=== PATIENT | female | born 2000 | race African-American/Black ===

== ENCOUNTER 2023-10-14 10:04 | Emergency (ER) | payer OTHER ==
[2023-10-14 10:41] LABS: BILIRUBIN,URINE NEGATIVE (NEGATIVE); GLUCOSE, URINE (UA) NEGATIVE (NEGATIVE); KETONES,URINE (UA) TRACE mg/dL (NEGATIVE); NITRITE,URINE NEGATIVE (NEGATIVE); OCCULT BLOOD,URINE NEGATIVE (NEGATIVE); PROTEIN,URINE NEGATIVE (NEGATIVE); UROBILINOGEN,URINE 1 (NORMAL) E.U./dL (NORMAL)
[2023-10-14 10:42] LABS: HCG UR QUAL NEGATIVE
[2023-10-14 11:02] LABS: CLARITY,URINE CLEAR (CLEAR); WBC CLUMPS,URINE PRESENT
[2023-10-14 11:03] LABS: BACTERIA,URINE Many /HPF (None Seen); LEUKOCYTE ESTERASE, URINE SMALL (NEGATIVE); RBC,URINE None Seen /HPF (0-5); SQUAMOUS EPITHELIAL CELL,UR MOD Squamous (<= Few)
--- NOTE | 2023-10-14 11:42 | ED Physician Documentation ---
PD HPI FEMALE - Stated complaint Stated Complaint: - Chief complaint Chief Complaint: UTI - History obtained from History obtained from: Patient - Additional information Additional information: Patient is a 23-year-old female presenting for evaluation of feeling urinary urgency and frequency with little coming out since yesterday afternoon. She denies dysuria or hematuria. She does report white vaginal discharge but no pelvic pain. Denies concerns for STIs. No fever. Does report some intermittent pain in the right flank. Ibuprofen does help with this. Review of Systems Constitutional: denies: Fever Cardiac: denies: Chest pain / pressure Respiratory: denies: Dyspnea GI: denies: Abdominal Pain : reports: Frequency, Discharge PD PAST MEDICAL HISTORY - Past Medical History Past Medical History: No - Past Surgical History Past Surgical History: No - Present Medications Home Medications: Ambulatory Orders Medication Instructions Recorded Confirmed cephALEXin [Keflex] 500 mg PO Q6H #28 cap 10/14/23 metroNIDAZOLE [Flagyl] 500 mg PO BID 7 Days #14 tablet 10/14/23 - Allergies Allergies/Adverse Reactions: Allergies Allergy/AdvReac Type Severity Reaction Status Date / Time No Known Drug Allergies Allergy Verified 10/14/23 10:23 - Social History Does the pt smoke?: No Smoking Status: Never smoker Does the pt drink ETOH?: No Does the pt have substance abuse?: No - Immunizations Immunizations are current?: Yes PD ED PE NORMAL - General General: Alert and oriented X 3, No acute distress, Well developed/nourished - HEENT HEENT: Atraumatic - Neck Neck: Supple, no meningeal sign - Cardiac Cardiac: RRR, No murmur - Respiratory Respiratory: No respiratory distress, Clear bilaterally - Abdomen Abdomen: Normal bowel sounds, Soft, Non tender, Non distended - Back Back: No: No CVA TTP - Derm Derm: Warm and dry - Neuro Neuro: Normal speech Results - Vitals Vitals: Vital Signs - 24 hr 10/14/23 10/14/23 10:19 12:01 Temperature 36.4 C L Heart Rate 86 84 Respiratory 15 16 Rate Blood Pressure 119/74 115/74 O2 Saturation 100 99 Oxygen O2 Source Room air - Labs Labs: Laboratory Tests 10/14/23 10/14/23 10/14/23 10:25 11:58 11:58 Urine Color YELLOW Urine Clarity CLEAR Urine pH 6.0 Ur Specific Fran[place]wing >=1.030 H Urine Protein NEGATIVE Urine Glucose (UA) NEGATIVE Urine Ketones TRACE Urine Occult Blood NEGATIVE Urine Nitrite NEGATIVE Urine Bilirubin NEGATIVE Urine Urobilinogen 1 (NORMAL) Ur Leukocyte Esterase SMALL H Urine RBC None Seen Urine WBC 6-10 H Urine WBC Clumps PRESENT Ur Squamous Epith Cells MOD Squamous H Urine Bacteria Many H Ur Microscopic Review INDICATED Urine Culture Comments NOT INDICATED Urine HCG, Qual NEGATIVE C. glabrata (PCR) NEGATIVE C. krusei (PCR) NEGATIVE Elisabeth species DNA NEGATIVE Chlam trachomat DNA PCR NEGATIVE N.gonorrhoeae DNA (PCR) NEGATIVE T. vaginalis (PCR) NEGATIVE TNP Bact Vaginosis (PCR) POSITIVE A PD Medical Decision Making - ED course Complexity details: reviewed results, re-evaluated patient, d/w patient ED course: Patient presenting for evaluation of urinary frequency and urgency for the past 2 days. Urine is suggestive of a UTI. Also reports having some vaginal discharge. No pelvic complaints so patient self swabbed. Abdominal exam is benign. Vital signs are stable patient is well-appearing and tolerating p.o. Patient counseled on treatment plan as well as concerning symptoms to return for. Vaginosis swab is positive for bacterial vaginosis so a prescription for Flagyl was sent. [id number] - Attempted to call patient to review swab findings positive for bacterial vaginosis. I sent a prescription to [facility] pharmacy for metronidazole. Phone call went to voicemail and voicemail box was full so unable to leave a message. I did try a second time to call and also was unable to leave a message. There are no other numbers listed for the patient. Departure - Departure Disposition: 01 Home, Self Care Clinical Impression: Urinary tract infection Condition: Stable Instructions: ED UTI Cystitis Female Prescriptions: cephALEXin [Keflex] 500 mg PO Q6H #28 cap Comments: Your bladder is emptying but your symptoms are likely related to a urine infection as demonstrated by your urine test. I am starting you on an antibiotic and [place] [facility] [place] Please make sure to complete the course of the antibiotics. We have also collected samples from the vaginal discharge you are having and we will notify you of any abnormal results. Return to the ER if you have worsening symptoms such as fever or increased pain. Discharge Date/Time: 10/14/23 12:02
[2023-10-14 12:06] VITALS: BP 115/74; O2SAT 99
[2023-10-14 14:17] LABS: CHLAMYDIA TRACHOMATIS DNA NEGATIVE (NEGATIVE); NEISSERIA GONORRHOEAE DNA NEGATIVE (NEGATIVE)
[2023-10-14 14:18] LABS: BACTERIAL VAGINOSIS DNA POSITIVE (NEGATIVE); CANDIDA GLABRATA DNA NEGATIVE (NEGATIVE); CANDIDA GROUP DNA NEGATIVE (NEGATIVE); CANDIDA KRUSEI DNA NEGATIVE (NEGATIVE); TRICHOMONAS VAGINALIS DNA NEGATIVE (NEGATIVE)
== END 2023-10-14 12:02 | disposition home or self-care (01) ==
LOC: ED 10:04
DX: N39.0 Urinary tract infection, site not specified (principal); N76.0 Acute vaginitis
CPT/HCPCS: 51798; 81001; 81003; 81025; 81514; 87086; 87491; 87591; 87661; 99283

== ENCOUNTER 2024-03-18 08:45 | Emergency (ER) | payer OTHER ==
--- NOTE | 2024-03-18 09:07 | ED Physician Documentation ---
PD HPI LOWER EXT INJURY - Stated complaint Stated Complaint: LT FOOT PX - Chief complaint Chief Complaint: Ext Problem - History obtained from History obtained from: Patient - History of Present Illness PD HPI LOW EXT INJURY LOCATION: Left, Foot Type of injury: Twist Timing - onset: How many days ago (10) Timing - duration: Days (10) Timing - details: Abrupt onset (injury with twisting of foot and ankle 10 days ago with xray at [facility] and given crutches for 3-4 days, then told to be walking on it. Pt states hurts with walking and has not improved.) Improved by: Rest Worsened by: Moving, Palpating, Other (walking) Associated symptoms: Swelling. No: Weakness, Numbness Similar symptoms before: Has not had sx before Recently seen: Clinic Review of Systems Skin: denies: Abrasion (s), Laceration (s) Neurologic: denies: Focal weakness, Numbness PD PAST MEDICAL HISTORY - Past Medical History Past Medical History: No - Past Surgical History Past Surgical History: No - Present Medications Home Medications: Ambulatory Orders Medication Instructions Recorded Confirmed Meloxicam [Mobic] 7.5 mg PO BID 10 Days #20 tablet 03/18/24 - Allergies Allergies/Adverse Reactions: Allergies Allergy/AdvReac Type Severity Reaction Status Date / Time No Known Drug Allergies Allergy Verified 03/18/24 08:56 - Social History Does the pt smoke?: No Smoking Status: Never smoker Does the pt drink ETOH?: No Does the pt have substance abuse?: No - Immunizations Immunizations are current?: Yes PD ED PE NORMAL - Vitals Vital signs reviewed: Yes - General General: Alert and oriented X 3, No acute distress, Well developed/nourished - Derm Derm: Normal color, Warm and dry - Extremities Extremities: Other (left foot dorsolateral with swelling and tender locally. Not tender at malleoli. ) - Neuro Neuro: No motor deficit, No sensory deficit Results - Vitals Vitals: Oxygen O2 Source Room air - Rads (name of study) left foot Relevant Findings:: Prelim report reviewed, EMP independent interpretation of test (no fractures, subacute healing. ) PD Medical Decision Making - ED course Complexity details: reviewed results (foot xray without signs of fracture or healing (given initial injury 10 days ago, would be looking for the callous rather than fracture line itself). ), considered differential (foot sprain and still hurting at 10 days, which is not teribly long or unusual, given still walking on it after just few days of crutches. She states [facility] tolde her to be of crutches after just few days and no foot support, having to wear duty boots. ), d/w patient ED course: I feel more time of less use, with NAAIDs continued and back with the crutches use for partial to no weight bearing. xray done due to degree of pain and persistent swelling, to consider unseen fracture initially, would have some healing callous starting at this time. Normal xray. THerefore the most likely explanation is the simple one of a strain that is not headed yet because of persistent use. Departure - Departure Disposition: 01 Home, Self Care Clinical Impression: Sprain of foot, left Qualifiers: Encounter type: initial encounter Qualified Code(s): S93.602A - Unspecified sprain of left foot, initial encounter Condition: Stable Record reviewed to determine appropriate education?: Yes Instructions: ED Sprain Foot Follow-Up: ARLEY RASHEED MD [Primary Care Provider] - Prescriptions: Meloxicam [Mobic] 7.5 mg PO BID 10 Days #20 tablet Comments: Your x-ray still appears normal. Sometimes hairline fractures or subtle fractures cannot appear on initial films but typically would be at this point. We can therefore say it is the sprain is originally presumed. These can take several weeks or more to get better at times. I would have you resume thus crutches for partial to no weightbearing for another 3 to 5 days and then concurrently to have a firm soled foot support/splint to reduce motion through the midfoot. Once is more comfortable be having weightbearing then off of the crutches but continue with the foot's splint for another couple of weeks when up and around. We can try a different anti-inflammatory as well. I wrote for some meloxicam twice daily. Continue with Tylenol 4 times a day if needed in addition for pain. You can do the Aaron wrap to help with swelling and elevate your foot often today and tomorrow. Ice to the area periodically may be helpful as well. [facility] [place] for reevaluation at that point. Forms: PCP List, Activity restrictions Discharge Date/Time: 03/18/24 10:28
--- NOTE | 2024-03-18 09:55 | XRAY Report ---
PROCEDURE: Foot 3+V LT INDICATIONS: persistent pain, injury 10 days ago TECHNIQUE: 3 views of the foot were acquired. COMPARISON: None. FINDINGS: Bones: No fractures or dislocations. Mild hallux valgus angulation with medial bunion formation. No suspicious bony lesions. Soft tissues: No tibiotalar joint effusion. Achilles tendon appears normal. Soft tissue swelling al neyda the dorsal aspect of the foot. IMPRESSION: No acute bony abnormality. If pain persists with conservative management, consider repeat x-ray in 10 -14 days or cross-sectional imaging. Reviewed by: Diego Barone MD on 03/18/2024 9:54 AM PDT Approved by: Diego Barone MD on 03/18/2024 9:54 AM PDT Station ID: [id number]
[2024-03-18] MEDS: NAPROXEN 250 MG TABLET PO STA (10:16)
[2024-03-18 10:34] VITALS: BP 121/79; O2SAT 99
== END 2024-03-18 10:28 | disposition home or self-care (01) ==
LOC: ED 08:45
DX: S93.602A Unspecified sprain of left foot, initial encounter (principal); X50.1XXA Overexertion from prolonged static or awkward postures, initial encounter
CPT/HCPCS: 73630; 99283; 99284; A9270

== ENCOUNTER 2024-04-01 13:46 | Outpatient (CLI) | payer OTHER ==
--- NOTE | 2024-04-01 19:46 | MRI Report ---
PROCEDURE: Foot LT WO INDICATIONS: LEFT FOOT PAIN TECHNIQUE: Noncontrast sagittal T1 spin echo and T2 fast spin echo with fat saturation, long-axis T1 spin echo a nd T2 fast spin echo with fat saturation, short-axis proton density fast spin echo and T2 fast spin e cho with fat saturation through the forefoot. COMPARISON: Left foot radiograph dated 03/18/2024. FINDINGS: Image quality: Excellent. Bones and joints: No bone marrow contusions or metatarsal stress fractures. The sesamoid bones appe ar in expected positions, without internal edema. No metatarsophalangeal joint degeneration. No int raosseous lesions. Soft tissues: Marked soft tissue swelling and edema over dorsal and medial aspect of mid foot particu larly over first and second metatarsal shaft as well as the cuneiforms is seen. No discrete drainable fluid collection. The visualized plantar foot muscles demonstrate normal signal and bulk. Visualize d flexor and extensor tendons appear intact, without tenosynovitis. No soft tissue ganglion cysts or bursal fluid collections. Sagittal images demonstrate no evidence for plantar plate tears. IMPRESSION: 1. Significant soft tissue swelling and edema over dorsal and medial aspect of the midfoot and may re present soft tissue contusion and hematoma. No discrete drainable fluid collection is seen. 2. No marrow edema. No fracture or dislocation. No metatarsal stress fractures. 3. No plantar foot muscles signal abnormalities. Reviewed by: Christopher Escobar MD on 04/01/2024 7:44 PM PDT Approved by: Christopher Escobar MD on 04/01/2024 7:44 PM PDT Station ID: [id number]
== END 2024-04-01 13:47 | disposition home or self-care (01) ==
LOC: DI 13:46
PROVIDERS: ATTEND Preventive Medicine Aerospace Medicine
DX: M79.672 Pain in left foot (principal); R93.6 Abnormal findings on diagnostic imaging of limbs; R93.89 Abnormal findings on diagnostic imaging of other specified body structures